=== PATIENT | female | born 1955 | race African-American/Black ===

== ENCOUNTER 2021-03-10 14:59 | Emergency (ER) | payer OTHER ==
[~2021-03-10] VITALS: Ht 149.9 cm; Wt 48.5 kg
[2021-03-10 16:26] VITALS: BP 161/88
== END 2021-03-10 16:27 ==
LOC: ER 14:59
PROVIDERS: Nurse Practitioner
DX: Z20.822 Contact with and (suspected) exposure to COVID-19 (principal); Z88.1 Allergy status to other antibiotic agents

== ENCOUNTER 2021-03-28 03:49 | Inpatient (IN) | payer OTHER ==
[~2021-03-28] VITALS: Ht 152.4 cm; Wt 52.2 kg
[2021-03-28 03:50] VITALS: BP 238/108
[2021-03-28] MEDS ORDERED: HUMALOG KW100 UNIT/1 SUBQ (04:21)
[2021-03-28] MEDS ORDERED: PRINIVIL40 MG PO (04:25)
[2021-03-28] MEDS ORDERED: ROSUVASTATIN CA10 MG PO (04:25)
[2021-03-28] MEDS ORDERED: LEVEMIR FL100 UNIT/2 SUBQ (04:25)
[2021-03-28] MEDS ORDERED: CLONAZEPAM 0.50.5 M1 PO (04:26)
[2021-03-28] MEDS ORDERED: REMERON 30 MG T30 M1 PO (04:26)
[2021-03-28] MEDS ORDERED: BUSPIRONE HCL5 MG PO (04:26)
[2021-03-28] MEDS ORDERED: ESCITALOPRAM OX20 MG PO (04:26)
[2021-03-28] MEDS ORDERED: NEURONTIN 300M300 M2 PO (04:27)
[2021-03-28] MEDS ORDERED: LISINOPRIL30 MG PO (04:27)
[2021-03-28 04:51] LABS: ABSOLUTE NEUTROPHILS 5.3 thou/uL (1.4-8.2); BASOPHILS 0.7 % (0.0-2.0); EOSINOPHILS 3.6 % (0.0-3.0); HEMATOCRIT 42.1 % (37.0-47.0); HEMOGLOBIN 14.4 gm/dL (12.0-15.0); LYMPHOCYTES 24.7 % (24.0-44.0); MCH 29.6 pg (26.0-34.0); MCHC 34.3 g/dL (28.0-37.0); MCV 86.2 fL (80.0-100.0); MONOCYTES 6.3 % (1.0-8.0); PLATELET COUNT 205 thou/uL (150-400); POLYS 64.7 % (36.0-66.0); RBC 4.88 mil/uL (4.20-5.00); RDW 13.6 % (10.5-14.5); WBC 8.2 thou/uL (4.0-11.0)
[2021-03-28 04:56] LABS: CALCIUM 9.7 mg/dL (8.5-10.1); CREATININE 0.9 mg/dL (0.6-1.0); POTASSIUM 3.5 mmol/L (3.5-5.1)
[2021-03-28 04:59] LABS: URINE BILIRUBIN NEGATIVE (Negative); URINE BLOOD TRACE (Negative); URINE CLARITY CLEAR; URINE COLOR YELLOW; URINE GLUCOSE-RANDOM* NEGATIVE (Negative); URINE KETONES NEGATIVE (Negative); URINE LEUKOCYTES-REFLEX NEGATIVE (Negative); URINE NITRITE-REFLEX NEGATIVE (Negative); URINE PROTEIN (DIPSTICK) NEGATIVE (Negative); URINE SPECIFIC GRAVITY 1.015 (1.005-1.035); URINE UROBILINOGEN 0.2 E.U./dl (0.2-1.0)
[2021-03-28 05:03] LABS: ALBUMIN 4.1 g/dL (3.4-5.0); MAGNESIUM 1.8 mg/dL (1.8-2.4); TOTAL BILIRUBIN 0.6 mg/dL (0.2-1.0); TOTAL PROTEIN 8.2 g/dL (6.4-8.2)
[2021-03-28 05:05] LABS: AMP/METHAMP Negative (Negative); BARBITURATES Negative (Negative); BENZODIAZEPINES Negative (Negative); COCAINE Negative (Negative); METHADONE Negative (Negative); OPIATES Negative (Negative); PCP Negative (Negative)
[2021-03-28 08:16] VITALS: BP 200/96
[2021-03-28 09:04] VITALS: BP 200/103
[2021-03-28 09:34] LABS: CHOLESTEROL 160 mg/dL (<200); HDL CHOLESTEROL 46 mg/dL (>40); LDL CHOLESTEROL 94 mg/dL (<100); TC:HDL 3.5 Ratio (Not establshd); TRIGLYCERIDE 101 mg/dL (<150); VLDL 20 mg/dL (<40)
--- NOTE | 2021-03-28 09:57 | EKG ---
[place] [address] [facility] [employer] [place] [address] ELECTROCARDIOGRAM REPORT Name: KAITLYN SPAULDING Room #: 359-P ADM IN M.R.#: [id number] Admission: 03/28/21 Attend Phys: George Carter Discharge: Date of : 51 Report #: [id number] [facility] ED Test Date: 2021-03-28 Test Time: 04:23:34 Pat Name: KAITLYN SPAULDING Department: Room: 359 Gender: F Associate Research Scientist: : 1955 Requested By: Dominique Colin Order Number: [id number] MD: Cas Freed Measurements Intervals [place] Rate: 86 P: 26 FL: 147 QRS: -20 QRSD: 111 T: 70 QT: 408 QTc: 488 Interpretive Statements Sinus rhythm Left atrial enlargement LVH with IVCD and secondary repol abnrm No previous ECG available for comparison Electronically Signed On 03-28-2021 9:57:48 CLAY PLANT TREATER by Cas Freed [email or web address] <ELECTRONICALLY SIGNED> By: Cas Freed MD 03/28/21 0957 0423 0423 Cas Freed MD /EPI
[2021-03-28 13:21] VITALS: BP 173/82
--- NOTE | 2021-03-28 17:50 | NUR ---
PATIENT IS ALERT AND ORIENTED X4 (PERSON, PLACE, TIME). PATIENT HAS DIFFICULTY EXPRESSING WHAT SHE IS TRYING TO SAY. PATIENTS NIH SCALE WAS NEGATIVE. PATIENT HAS DIMINISHED LUNG SOUND IN THE BASES. PATIENT IS CC/ TELE AND HAS BEEN SINUS RHYTHM THIS SHIFT. PATIENT GETS UP WITH ONE ASSIST WITH WALKER AND GAITBELT AND HAS TO BE REMINDED TO TAKE THE WALKER WITH HER WHEN AMBULATING. PATIENT IS SHAKY AND REPORTS FEELING NERVOUS WHEN SHE IS AMBULATING. PATIENT REPORTS HER LAST BM WAS 03/28/2021. PATIENT WAS INCONTINENT OF URINE ONCE THIS SHIFT. PATIENT HAS AN IV IN HER RIGHT FOREARM THAT IS SALINE LOCKED AND PATENT. PATIENT WILL CONTINUE TO BE MONITORED.
[2021-03-28 20:35] VITALS: BP 176/90
[2021-03-28 23:50] VITALS: BP 166/78
[2021-03-29 04:26] VITALS: BP 134/71
--- NOTE | 2021-03-29 06:30 | NUR ---
Patient making slow progress towards outcome goals. High fall risks, fall precautions in place, calls out appropriately for needs to get up to bathroom. Hydrocodone given for chronic back pain. Nicotine patch started, pack a day smoker. BP improved after Clonidine given.
[2021-03-29 07:14] VITALS: BP 140/89
[2021-03-29 16:23] VITALS: BP 159/88
--- NOTE | 2021-03-29 17:07 | NUR ---
PATIENT IS ALERT AND ORIENTED X3. PATIENT HAS HAD NO POSITIVE RESPONSES ON HER STROKE SCREENING THIS SHIFT. PATIENT IS ON ROOM AIR AND HER LUNGS ARE CLEAR. PATIENT IS MS/ TELE AND HAS BEEN SINUS RHYTHM THIS SHIFT. PATIENT GETS UP TO THE BATHROOM WITH ONE ASSIST, GAITBELT, AND WALKER. PATIENT GET SHAKY WHEN AMBULATING THE FURTHER AWAY FROM THE BED SHE GETS. PATIENT HAS BACK PAIN. PATIENT WAS TREATED WITH ORDERED PAIN MEDICATIONS AT 1630. PATIENT HAS AN IV IN HER RIGHT FOREARM THAT IS SALINE LOCKED AND PATENT. PATIENT WILL CONTINUE TO BE MONITORED.
[2021-03-29 19:16] VITALS: BP 174/92
--- NOTE | 2021-03-29 22:56 | NUR ---
PT ALERT AND ORIENTED X3. MILDLY CONFUSED TO CORRECT HOSPITAL. FOLLOWS COMMANDS FOR NIH APPROPRIATELY. AMBULATED TO BR WITH WALKER STANDBY ASSISTANCE. GAIT IS STEADY PRESENTLY. NO S/S TIA OR CVA PRESENTY. NO S/S DISTRESS ON RA.
[2021-03-29 23:27] VITALS: BP 183/84
[2021-03-30] VITALS (8 sets, daily range): BP systolic 139–183; BP diastolic 66–91
--- NOTE | 2021-03-30 06:28 | NUR ---
PT PROGRESSING SLOWLY TOWARDS D/C GOALS. AFEBRILE. BP ELEVATED .SEE VS. HYDRALAZINE GIVEN. BP MODERATELY HIGH AFTER HYDRALAZINE. HYDROCODONE GIVEN FOR BACK PAIN. PT SLEEPING AFTER PAIN MEDS. NO S/S TIA OR CVA TONIGHT.
--- NOTE | 2021-03-30 18:44 | NUR ---
RN ASSUMED PT'S CARE AT 0700AM, PT IS A&OX3 ( PERSON, PLACE AND TIME), PT IS ON ROOM AIR, PT'S VS ARE STABLE AT DAY SHIFT, PT'S BACK PAIN HAS CONTROLLED AT DAY SHIFT.
[2021-03-31 00:55] VITALS: BP 160/80
[2021-03-31 04:07] VITALS: BP 141/94
--- NOTE | 2021-03-31 05:15 | NUR ---
PT HAS BEEN NPO AFTER MN FOR POSSIBLE KYPHOPLASTY TODAY. CLARIFIED WIH SEISMOGRAPH COMPUTER IF PT COULD TAKE HER PAIN PILL AND PROTONIX THIS AM. OK TO GIVEN MEDS WITH SIP OF H20 PER SEISMOGRAPH COMPUTER. SL R FA FLUSHED AND PATENT. PT BATH COMPLETED.
[2021-03-31 07:14] VITALS: BP 149/83
--- NOTE | 2021-03-31 12:38 | HC ---
[facility] [place] [address] CONSULTATION Name: KAITLYN SPAULDING Room #: 359-P ADM IN M.R.#: [id number] Admission: 03/28/21 Attend Phys: George Carter Discharge: Date of : 51 Report #: [id number] THIS REPORT FOR: cc: NO FAMILY PHYSICIAN or PCP NO FAMILY PHYSICIAN or PCP Gerald Anaya MD ~ DATE OF SERVICE: 03/31/2021 We were asked by Dr. Lane to see the patient. HISTORY OF PRESENT ILLNESS: The patient is a 65-year-old admitted with a history of neurologic dysfunction. The patient claims that she went berserk several days ago and was unable to speak and had difficulty moving hands and feet. This appeared to improve after admission. The patient also notes that she fell approximately 2 weeks ago and sustained compression fractures of L2 and T6. 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 No acute abnormalities. CT angiogram shows bilateral calcified carotid arteries and a "near occlusion" of the left internal carotid is seen. I agree that the calcium makes it difficult to quantify the lesion. PAST MEDICAL HISTORY: Significant for hypertension, depression and anxiety. The patient has had a bilateral mastectomy for breast cancer in the past. The patient also has diabetes mellitus. MEDICATIONS: Include insulin, rosuvastatin, lisinopril, buspirone, clonazepam, escitalopram, mirtazapine, lisinopril, gabapentin as mentioned. PAST HISTORY: Includes diabetes, hypertension, previous stroke in 2007, dyslipidemia, breast cancer, tobacco use. The patient claims she is a longtime tobacco smoker, who is having difficulty quitting. ALLERGIES: THE PATIENT CLAIMS TO BE ALLERGIC TO TETRACYCLINE, WHICH CAUSES NAUSEA AND VOMITING. REVIEW OF SYSTEMS: I agree with the review of systems as dictated by the hospitalist. PHYSICAL EXAMINATION: GENERAL: The patient is lying in bed, seems comfortable, is relatively animated. VITAL SIGNS: Temperature 36.5, heart rate 70, respiratory rate 18, blood pressure 149/83. [address] [address] CONSULTATION Name: KAITLYN SPAULDING Room #: 359-P [facility] IN M.R.#: [id number] Admission: 03/28/21 Attend Phys: George Carter Discharge: Date of : 51 Report #: [id number] HEENT: No scleral icterus. No arcus. NECK: No mass. Loud left cervical bruit audible. I do not hear a right cervical bruit. CHEST: Clear to auscultation. HEART: Rhythm regular, no murmur. ABDOMEN: Soft. EXTREMITIES: No clubbing, cyanosis or edema. VASCULAR: Strong popliteal pulses bilaterally. MUSCULOSKELETAL: No bone or joint asymmetry or deformity. SKIN: No rash or infection. NEUROLOGIC: No obvious motor or sensory dysfunction, speaks well. PSYCHIATRIC: Oriented and appropriate and shows insight into problem. IMPRESSION: The patient has bilateral carotid artery disease. I have taken the liberty of ordering a duplex evaluation to get better assessment of the left carotid. If this is a subtotal occlusion, then we should probably address this prior to other procedures. The patient is on aspirin. I will discuss this with Dr. Lane. Thank you for the consult. <ELECTRONICALLY SIGNED> By: Gerald Anaya MD 03/31/21 1238 1007 1135 Gerald Anaya MD /nt
[2021-03-31 14:06] VITALS: BP 148/71
[2021-03-31 16:18] VITALS: BP 167/74
[2021-03-31 16:26] LABS: URINE BILIRUBIN NEGATIVE (Negative); URINE BLOOD NEGATIVE (Negative); URINE GLUCOSE-RANDOM* NEGATIVE (Negative); URINE KETONES NEGATIVE (Negative); URINE NITRITE-REFLEX NEGATIVE (Negative); URINE PROTEIN (DIPSTICK) NEGATIVE (Negative); URINE UROBILINOGEN 0.2 E.U./dl (0.2-1.0)
[2021-03-31 16:28] LABS: URINE LEUKOCYTES-REFLEX 1+ (Negative)
[2021-03-31 16:33] LABS: SQUAMOUS 0-3 Few /LPF (0-3); URINE CLARITY CLEAR; URINE COLOR YELLOW
[2021-03-31 16:34] LABS: BACTERIA-REFLEX None Seen /HPF (None Seen); CRYSTALS None Seen /LPF (None Seen); URINE RBC None Seen /HPF (NONE SEEN); URINE WBC-REFLEX 0-5 Rare /HPF (0-5)
--- NOTE | 2021-03-31 16:49 | NUR ---
INITIAL ASSESSMENT: Received consult for discharge planning. Pt was admitted from home due to AMS/ compression fx/carotid artery occlusion. Neuro and CTS consulted. Pt with hx of neurologic dysfunction/HTN/depression/anxiety/DM. Pt had kyphoplasty earlier today. Carotid endarterectomy is planned for . WILLIS spoke with pt's dtr, Karen, via phone. Introduced role of WILLIS. Pt has been living at home alone. Pt's dtr states that when pt discharges, she will be staying with Karen and her family. Prior to admission, pt was not using any DME. Karen is pt's paid caregiver [facility] No hx of Post-acute placement. Pt's dtr states that they would be agreeable with HH services if needed for therapy. Pt's PCP is Dr. Bernard Anthony. PT/OT has been ordered. Pt's dtr requested documentation stating that pt is hospitalized. Karen needs to provide documentation to her employer. Letter left on pt's chart for Karen to leaf size picker later today. WILLIS is following to assist as needed with discharge planning.
[2021-03-31 19:44] LABS: HEMATOCRIT 41.5 % (37.0-47.0); HEMOGLOBIN 13.6 gm/dL (12.0-15.0); MCH 28.8 pg (26.0-34.0); MCHC 32.7 g/dL (28.0-37.0); MCV 88.1 fL (80.0-100.0); RBC 4.71 mil/uL (4.20-5.00); RDW 14.1 % (10.5-14.5)
--- NOTE | 2021-03-31 19:44 | NUR ---
PATIENT IS ALERT AND ORIENTED X3 THIS SHIFT. SHE IS OCCASSIONALLY FORGETFUL. PATIENTS NIH SCREENINGS HAVE BEEN NEGATIVE THIS SHIFT. PATIENT HAD LOW BLOOD GLUCOSE LEVELS AROUND NOON, PATIENT WAS TREATED PER PROTOCOL. PATIENT REPORTS 'VERY LITTLE' PAIN POST KYPHOPLASTY. PATIENT IS ON BED REST AND ALLOWED TO GET UP TO USE THE COMMODE ONLY FOR TWENTY FOUR HOURS. PATIENT IS ON ROOM AIR. HER LUNGS ARE DIMINISHED BUT CLEAR IN ALL FIVE LOBES. PATIENTS IV IN HER RIGHT ARM INFILTRATED. A NEW IV WAS PLACED IN PATIENTS LEFT FOREARM. IV IS PATIENT. PATIENT WILL CONTINUE TO BE MONITORED.
[2021-03-31 19:53] LABS: ALBUMIN 3.4 g/dL (3.4-5.0); CALCIUM 8.9 mg/dL (8.5-10.1); CREATININE 1.1 mg/dL (0.6-1.0); POTASSIUM 4.1 mmol/L (3.5-5.1); TOTAL BILIRUBIN 0.5 mg/dL (0.2-1.0)
[2021-03-31 19:55] VITALS: BP 151/70
[2021-03-31 19:55] LABS: APTT 25.6 Seconds (24.5-32.8); INR 1.17; PROTIME 12.7 Seconds (10.5-12.1)
[2021-04-01 00:20] VITALS: BP 129/75
[2021-04-01 03:50] VITALS: BP 146/78
--- NOTE | 2021-04-01 04:18 | NUR ---
Patient making slow progress towards outcome goals. Vital signs and rhythm stable. Good back pain control with Hydrocodone, only standby assist to BSC for the night. IVfluids infusing. Plnety of urine output.
--- NOTE | 2021-04-01 07:16 | EKG ---
[address] [address] ELECTROCARDIOGRAM REPORT Name: KAITLYN SPAULDING Room #: 359- ADM IN M.R.#: [id number] Admission: 03/28/21 Attend Phys: George Carter Discharge: Date of : 51 Report #: [id number] [facility] Test Date: 2021-03-31 Test Time: 12:02:37 Pat Name: KAITLYN SPAULDING Department: Room: 359 Gender: F Supervisor Die Casting: ERNIE : 1955 Requested By: Gerald Anaya Order Number: [id number] : Kelechi Meek Measurements Intervals [place] Rate: 60 P: 33 MD: 159 QRS: -17 QRSD: 101 T: 3 QT: 470 QTc: 470 Interpretive Statements Sinus rhythm Probable left atrial enlargement Left ventricular hypertrophy Inferior infarct, old Compared to ECG 03/28/2021 04:23:34 Myocardial infarct finding now present ST (T wave) deviation now present Intraventricular conduction delay no longer present Early repolarization no longer present Electronically Signed On 04-01-2021 7:16:00 CATERPILLAR MECHANIC by Kelechi Meek [email or web address] <ELECTRONICALLY SIGNED> By: Kelechi Meek MD, FACC 04/01/21 0716 120 1202 Kelechi Meek MD, FAC /EPI
[2021-04-01 07:37] VITALS: BP 163/73
--- NOTE | 2021-04-01 10:32 | NUR ---
VASCULAR ACCESS NURSE ROUNDING. A PICC WAS ORDERED 03/31 FOR IV ACCESS. A PERIPHERAL IV WAS PLACED PM AND THE PATIENT NOW HAD ADEQUATE ACCESS. SPOKE TO RORY BAUMANN AND PICC IS ON HOLD AT THIS TIME. DISCUSSED WITH THE PATIENT AND DAUGHTER. WE WILL RETURN TO PLACE PICC IF NEEDED.
--- NOTE | 2021-04-01 11:14 | 2DMMODE ---
[facility] [address] [place] [address] 2 D/M-MODE ECHOCARDIOGRAM Name: KAITLYN SPAULDING Room #: 359-P ADM IN M.R.#: [id number] Admission: 03/28/21 Attend Phys: George Carter Discharge: Date of : 51 Report #: [id number] THIS REPORT FOR: cc: NO FAMILY PHYSICIAN or PCP NO FAMILY PHYSICIAN or PCP Cas Freed MD ~ APPROVED REPORT Study performed: 04/01/2021 10:05:24 EXAM: Comprehensive 2D, Doppler, and color-flow Echocardiogram Patient Location: Bedside Room #: 359 Status: routine BSA: 1.46 HR: 63 bpm BP: 163/73 mmHg Rhythm: NSR Other Information Study Quality: Good Indications CVA/TIA Diabetes Hypertension/HDD Echo Enhancing Agent Indication: Rule out Shunt Agent(s) / Amount(s) Used: Agitated Saline 7 cc 2D Dimensions RVDd: 27.05 mm IVSd: 10.72 (7-11mm) LVOT Diam: 20.91 (18-24mm) LVDd: 41.56 mm PWd: 10.76 (7-11mm) Ascending Ao: 24.50 (22-36mm) LVDs: 21.92 (25-40mm) Left Atrium: 33.89 (27-40mm) Aortic Root: 27.99 mm IVC: 14.00 mm Volumes Left Atrial Volume (Systole) Single Plane 4CH: 30.17 mL Single Plane 2CH: 36.56 mL LA ESV Index: 28.00 mL/m2 [facility] [address] [place] [address] 2 D/M-MODE ECHOCARDIOGRAM Name: JASSONKAITLYN Amaya Room #: 359-P [facility] IN ..#: [id number] Admission: 03/28/21 Attend Phys: George Nye Jul Discharge: Date of : 51 Report #: [id number] Aortic Valve AoV Peak Pa.: 1.37 m/s AO Peak Gr.: 7.52 mmHg LVOT Max P.19 mmHg LVOT Max V: 1.02 m/s NELIDA Vmax: 2.56 cm2 Mitral Valve E/A Ratio: 0.5 MV Decel. Time: 280.72 ms MV E Max Pa.: 0.80 m/s MV A Pa.: 1.59 m/s MV PHT: 81.41 ms IVRT: 133.79 ms Pulmonary Valve PV Peak Pa.: 0.88 m/s PV Peak Gr.: 3.09 mmHg Pulmonary Vein P Vein S: 0.44 m/s P Vein A: 0.23 m/s P Vein D: 0.17 m/s P Vein A Dur.: 92.3 msec P Vein S/D Ratio: 2.59 Left Ventricle The left ventricle is normal size. There is normal LV segmental wall motion. There is normal left ventricular wall thickness. The left ventricular systolic function is normal. The left ventricular ejection fraction is within the normal range. LVEF is 60-65%. Grade I - abnormal relaxation pattern. Right Ventricle The right ventricle is normal size. The right ventricular systolic function is normal. Atria The left atrium size is normal. Injection of bubbles documented no interatrial shunt. The right atrium size is normal. Aortic Valve The aortic valve is normal in structure. The Aortic valve is sclerotic. Mild aortic regurgitation. There is no aortic valvular stenosis. Mitral Valve The mitral valve is normal in structure. There is no mitral valve regurgitation noted. No evidence of mitral valve stenosis. [facility] [address] [place] [address] 2 D/M-MODE ECHOCARDIOGRAM Name: KAITLYN SPAULDING Room #: 359-P [facility] IN .R.#: [id number] Admission: 03/28/21 Attend Phys: George Ayala Discharge: Date of : 51 Report #: [id number] Tricuspid Valve The tricuspid valve is normal in structure. There is no tricuspid valve regurgitation noted. Pulmonic Valve The pulmonary valve is normal in structure. There is no pulmonic valvular regurgitation. Great Vessels The aortic root is normal in size. IVC is normal in size and collapses >50% with inspiration. Pericardium There is no pericardial effusion. <Conclusion> The left ventricle is normal size. There is normal left ventricular wall thickness. The left ventricular systolic function is normal. Grade I - abnormal relaxation pattern. The right ventricle is normal size. The left atrium size is normal. Injection of bubbles documented no interatrial shunt. Mild aortic regurgitation. There is no mitral valve regurgitation noted. <ELECTRONICALLY SIGNED> By: Cas Freed MD 04/01/211112 12 12 Cas Freed MD /INF
--- NOTE | 2021-04-01 13:34 | NUR ---
PT DISCHARGED TO ACUTE 03/30 DUE TO ATRIAL FLUTTER AND CHANGES IN BP, AND WAS RE-ADMITTED TO REHAB 03/31 INTERRUPTED STAY. REFER TO FOR PRIOR ADL STATUS ON REHAB.
--- NOTE | 2021-04-01 14:45 | NUR ---
SW reviewed chart and spoke with nursing and attending physician. Pt is s/p kyphoplasty. Pt to have angiogram today and is scheduled for left carotid endarterectomy on morning. Therapy is following to assist with recommendations for discharge needs. SW is following to assist as needed with discharge planning.
[2021-04-01 15:40] VITALS: BP 158/88
[2021-04-01 19:53] VITALS: BP 153/84
--- NOTE | 2021-04-01 20:09 | NUR ---
PT REPORTS BACK PAIN MUCH IMPROVED AFTER KYPHOPLASTY YESTERDAY...ONLY REQUIRED HER NORCO X 1 TODAY AND SHE MOVES AROUND MUCH EASIER NOW...
[2021-04-02 06:18] VITALS: BP 171/98
[2021-04-02 07:27] VITALS: BP 186/101
--- NOTE | 2021-04-02 07:30 | NUR ---
Pt. has slept well most of the night. Did not request for pain med this shift. Up with SBA to use commode. Kept NPO for procedure.
--- NOTE | 2021-04-02 12:19 | NUR ---
WILLIS reviewed chart and spoke with nursing and attending physician. WILLIS met with pt's dtr, Karen, in pt's room. Pt was off the unit having angiogram. Plan is for pt to have left carotid endarterectomy tomorrow. WILLIS discussed discharge plan with pt's dtr. Pt's dtr is her paid caregiver through her Medicaid. Pt will need HH therapy arranged through a HH provider. Pt's dtr is agreeable with HH if needed. WILLIS is following to assist as needed with discharge planning.
--- NOTE | 2021-04-02 12:39 | NUR ---
PT TRANSFERED BACK TO RM 359 AT 1240 PER RN. RT GROIN DRESSING CLEAN DRY INTACT. NO BLEEDING OR SWELLING OR HEMATOMA. THREE HOUR BEDREST COMPLETE. REPORT TO MARTY BAUMANN HR 71; BP 135/74. PT ATE LUNCH WITH DAUGHTER'S HELP WHILE HERE. PAIN IMPROVED
--- NOTE | 2021-04-02 13:02 | NUR ---
PT LEFT UNIT AT APPROX 0800 AND WENT TO [facility] FOR PROCEDURE. UNABLE TO ADMINISTER MORNING MEDS. NOTIFIED BY [facility] NURSE THAT PT WILL STAY ON THEIR UNIT UNTIL APPROX 1300.
[2021-04-02 17:05] VITALS: BP 134/87
[2021-04-02 21:57] VITALS: BP 120/71
--- NOTE | 2021-04-03 03:19 | NUR ---
PT IS A&OX4 AND ABLE TO COMMUNICATE WANTS AND NEEDS TO STAFF. PT IS SCHEDULED FOR CAROTID ENDARTERECTOMY IN THE MORNING, HAS BEEN NPO SINCE MIDNIGHT. SR ON THE MONITOR. DENIES CHEST PAIN AND SHORTNESS OF BREATH. PT IS UP WITH SBA TO BATHROOM, STEADY GAIT NOTED. PT WITH COMPLAINT OF LOWER BACK PAIN, MEDICATED WITH NORCO AND TYLENOL. WILL CONTINUE TO OBSERVE FOR CHANGES
[2021-04-03 03:46] VITALS: BP 132/78
[2021-04-03 08:01] VITALS: BP 138/74
[2021-04-03 11:55] VITALS: BP 124/79
--- NOTE | 2021-04-03 14:39 | NUR ---
WILLIS reviewed chart and spoke with nursing and attending physician. Pt was scheduled to have carotid endarterectomy this morning. EEG machine was not working. Surgery was cancelled. WILLIS met with pt and dtr, Ronda, at bedside. Unknown when surgery will be rescheduled. Pt's dtr, Karen, requests documentation to provide to her employer regarding her mother's hospitalization. Letter provided. Left in pt's room. SW met with pt per her request. Pt's dtr would like an update regarding the plan for surgery. WILLIS provided Karen's contact info to attending physician. WILLIS is following to assist as needed with discharge planning.
[2021-04-03 15:22] VITALS: BP 113/75
[2021-04-03 15:46] LABS: HEMATOCRIT 40.6 % (37.0-47.0); HEMOGLOBIN 13.2 gm/dL (12.0-15.0); MCH 28.9 pg (26.0-34.0); MCHC 32.6 g/dL (28.0-37.0); MCV 88.7 fL (80.0-100.0); RBC 4.58 mil/uL (4.20-5.00); RDW 14.2 % (10.5-14.5); WBC 6.6 thou/uL (4.0-11.0)
[2021-04-03 15:56] LABS: CALCIUM 9.1 mg/dL (8.5-10.1); POTASSIUM 4.2 mmol/L (3.5-5.1)
--- NOTE | 2021-04-03 16:32 | NUR ---
PT ALERT AND ORIENTED X 4. PT OFF UNIT AT START OF SHIFT, DUE TO SCHEDULED SURGERY. PT NOT ABLE TO GET SURGERY TODAY BECAUSE OF MALFUNCTIONING EQUIPMENT. AFTER SPEAKING WITH SURGEON ALLIE AND DR YIN, PT PUT BACK ON REGULAR DIET. PT SURGERY RESCHEDULED TOMORROW, PT TO BE NPO AFTER MIDNIGHT. PT COMPLAINS OF BACK PAIN. WILL CONTINUE TO MONITOR.
[2021-04-03 19:33] VITALS: BP 147/85
[2021-04-04] VITALS (7 sets, daily range): BP systolic 98–180; BP diastolic 53–85
--- NOTE | 2021-04-04 03:14 | NUR ---
PT IS A&OX4, PLEASANT AND COOPERATIVE. PT HAS BEEN NPO SINCE MIDNIGHT FOR PLANNED STENT PLACEMENT IN THE MORNING. PT HAS C/O "HEARTBURN," MEDICATED WITH PRN MAALOX X1 WITH GOOD RELIEF. UP TO BR WITH SBA. VSS. WILL CONTINUE TO OBSERVE FOR CHANGES.
[2021-04-04 05:59] LABS: HEMATOCRIT 40.6 % (37.0-47.0); HEMOGLOBIN 13.6 gm/dL (12.0-15.0); MCH 29.3 pg (26.0-34.0); MCHC 33.4 g/dL (28.0-37.0); MCV 87.6 fL (80.0-100.0); RBC 4.63 mil/uL (4.20-5.00); RDW 13.7 % (10.5-14.5); WBC 7.5 thou/uL (4.0-11.0)
[2021-04-04 06:05] LABS: CALCIUM 9.5 mg/dL (8.5-10.1)
--- NOTE | 2021-04-04 09:20 | NUR ---
Assess for length of stay. Admit with possible CVA, compression fractures. Pt awaiting pending carotid endarectomy. Has functional swallow and tolerating meals. Healthy wt status. BG showing elevation 154-213, has insulin coverage. Recommend carb control diet after surgery. Otherwise low nutrition risk
--- NOTE | 2021-04-04 13:32 | NUR ---
WILLIS reviewed chart and spoke with nursing and attending physician. Plan for left carotid stent via TCAR procedure today with IR and CTS. 5N consult ordered to evaluate pt for possible admission to inpt acute rehab. Therapy to see pt after procedure. Will need insurance authorization for post-acute placement. No weekend discharge anticipated. WILLIS is following to assist as needed with discharge planning.
--- NOTE | 2021-04-04 14:57 | NUR ---
TOOK OVER CARE OF THIS PATIENT AT 0700. PATIENT RESTING COMFORTABLY IN BED DURING REPORT. PATIENT REMAINS NPO FOR PROCEDURE. CALLED DR. POLO REVENUE STAMP CUTTER TO SEE WHICH MEDICATIONS THEY WOULD LIKE TO HOLD BEFORE THE PROCEDURE; HELP PATI LISINOPRIL. PATIENT SCHEDULED FOR PROCEDURE TODAY. PATIENT ON ROOM AIR; DENIES SOA AND COUGH. AXOX4. VSS. WILL MONITOR PATIENT WHEN SHE GETS BACK FROM PROCEDURE; PATIENT LEFT UNIT APPROX 1400.
--- NOTE | 2021-04-04 22:36 | NUR ---
PT ARRIVED FROM PACU AT 1913 ACCOMPANIED BY ARCHANA, RN. AT TIME OF ARRIVAL PT ON CARDENE GTT OF 10 MG/HR. PT ORIENTED TO ROOM. VSS. PT ORIENTED TO SELF AND PLACE, BUT FORGETFUL CONSTANTLY ASKING "WHAT HAPPENED." DAUGHTER, BUBBA AT BEDSIDE AT 1945 AND STATED THAT PT IS FORGETFUL AT BASELINE. DR DASH ROUNDED AT 1999. WILL CONTINUE TO MONITOR.
[2021-04-05] VITALS (11 sets, daily range): BP systolic 88–120; BP diastolic 44–66
[2021-04-05 06:23] LABS: HEMATOCRIT 34.7 % (37.0-47.0); MCH 29.1 pg (26.0-34.0); MCV 88.2 fL (80.0-100.0); RBC 3.93 mil/uL (4.20-5.00); RDW 13.4 % (10.5-14.5); WBC 9.7 thou/uL (4.0-11.0)
[2021-04-05 06:29] LABS: HEMOGLOBIN 11.4 gm/dL (12.0-15.0)
[2021-04-05 06:51] LABS: CALCIUM 8.7 mg/dL (8.5-10.1); POTASSIUM 4.7 mmol/L (3.5-5.1)
--- NOTE | 2021-04-05 12:12 | O ---
[facility] [place] [address] OPERATIVE REPORT Name: KAITLYN SPAULDING Room #: 249-P ADM IN M.R.#: [id number] Admission: 03/28/21 Attend Phys: George Popeye Carter Discharge: Date of : 51 Report #: [id number] THIS REPORT FOR: cc: NO FAMILY PHYSICIAN or PCP NO FAMILY PHYSICIAN or PCP Gerald Anaya MD ~ DATE OF SERVICE: 04/04/2021 PREOPERATIVE DIAGNOSIS: Symptomatic high-grade left carotid artery stenosis. POSTOPERATIVE DIAGNOSIS: Symptomatic high-grade left carotid artery stenosis. OPERATION: Transcarotid arterial revascularization, left. SURGEON: Dr. Gerald Anaya and Dr. El Henderson. WASTE WATER OR WATER PLANT OPERATOR: ALLIE Worthington. ANESTHESIA: General. INDICATIONS: The patient is a 65-year-old who has a symptomatic left internal carotid stenosis. The patient presented with a transient ischemic attack approximately 1 week ago. This was characterized by speaking difficulty and motor dysfunction. No acute stroke was seen on the MRI and the patient largely resolved her symptoms. Arteriography demonstrated a 90% left internal carotid stenosis. The right side has a 30% lesion on the arteriogram. FINDINGS AND TECHNIQUE: After general anesthesia was established, the left sided low collar incision was made. The heads of the sternocleidomastoid muscle were and the common carotid was identified and controlled. Separately, the right common femoral vein was identified and entered using ultrasound guidance with an arterial needle followed by guidewire and exchange catheter. A long wire was placed and the venous end of the transcarotid arterial revascularization sheath was placed. Next, 10,000 units of heparin were given and the ACT was checked at 3 minutes. The common carotid was entered with the arterial needle followed by the guidewire and the exchange catheter and then using the longer wire, the arterial end of the AV fistula was placed. When the ACT was satisfactory, flow was established through the fistula and antegrade flow through the common carotid was occluded. An arteriogram was taken to identify the lesion. Pre-stent dilatation was done [facility] [address] [place] [address] OPERATIVE REPORT Name: KAITLYN SPAULDING Amaya Room #: 249-P [facility] IN ..#: [id number] Admission: 03/28/21 Attend Phys: George Carter Discharge: Date of : 51 Report #: [id number] using a 4 x 30 Cordis balloon. Good resolution of the blockage was identified and then the 9 x 30 Enroute stent was placed. Post-stent dilatation was done with a 5 x 20 Cordis balloon. Two minutes were allowed to elapse and then a final arteriogram was taken. This showed good correction of the lesion and good antegrade flow. With this information, flow was reestablished through the common carotid. The AV shunt was dismantled. The arterial end of the AV fistula was removed and the pursestring in the common carotid was tied tight. A second Prolene suture was placed at the puncture site for security. The venous end of the sheath was removed and pressure was applied to the groin. Protamine was given to reverse the heparin. When hemostasis was satisfactory, the neck wound was closed in layers. The patient tolerated the procedure well and was taken to the recovery area where her neurologic progress was monitored. All counts were reported as correct. <ELECTRONICALLY SIGNED> By: Gerald Anaya MD 04/05/21 1212 1648 1827 Gerald Anaya MD /nt
--- NOTE | 2021-04-05 15:51 | NUR ---
PATIENT ALERT, FORGETFUL. BP LOW THIS MORNING AND ANTIHYPERTENSIVES HELD PER SPECIAL EDUCATION DIRECTOR. UP TO THE CHAIR WITH MINIMAL ASSIST. TOLERATING DIET WELL W/O NAUSEA. MEDICATED FOR PAIN WITH PRN MEDS. A-LINE RT. RADIAL. THIS AFTERNOON PATIENT C/O CHIPPED FRONT TOOTH AND WANTS TO TAPE IT DOWN, PATIENT INFORMED NO DENTIST IS IN THE HOSPITAL. PATIENT NOW YELLING AT NURSE AND ACCUSING NURSE OF BEING RUDE AND MEAN AND THAT NURSE SHOUTED AND ARGUED WITH HER. ONE OF THE DAUGHTERS PRESENT FOR A FEW MINUTES AND WITNESSED PATIENT YELLING AND ACCUSING NURSE. MESSAGE SENT TO DR. YIN PER BEV TEXT BUT NO REPLY. PAGED ALSO SENT TO DR. YIN.
--- NOTE | 2021-04-05 16:50 | NUR ---
DR. YIN CALLED BACK AND TRIED TO TALK TO THE PATIENT ON THE PHONE, PATIENT REFUSED TO TALK TO DR. YIN ON RN'S PHONE. DR. YIN REQUESTED TO PUT ON SPEAKER PHONE AND PATIENT STATED THAT SHE DID NOT WANT ANYTHING TO DO WITH ME AND THAT I WAS MEAN AND YELLED AT HER. DR. YIN ASKED TO CALL FACE AND FILL PACKER TO SEE WHETHER PATIENT COULD TRANSFER OUT OF ICU AND IF NOT HAVE HYDROMETER FINISHER EVALUATE THE STAFFING FOR DIFFERENT NURSE. HYDROMETER FINISHER NOTIFIED AND CALL PLACED TO DR. MAYA. DR. MAYA CALLED BACK AND OK THE ORDER TO TRANSFER TO CCU.
[2021-04-06 00:13] VITALS: BP 114/69
--- NOTE | 2021-04-06 04:26 | NUR ---
Assumed pt care at 1900. Patient is alert and oriented to self and place. Fall precaution in placed. Denies pain. Patient is stable. Assessment completed and documented. Patient continues to talk about her chipped tooth. Scheduled meds administered to pt. No acute event through the night. Continue to monitor. No further needs at this time.
[2021-04-06 05:12] VITALS: BP 135/64
[2021-04-06 08:00] VITALS: BP 123/79
[2021-04-06] MEDS ORDERED: HYDROCORTISONE30 G9 RECTAL (13:21)
[2021-04-06] MEDS ORDERED: LIDOPATCH1 EACH TRANSDERM (13:21)
[2021-04-06] MEDS ORDERED: NICOTINE1 EACH TRANSDERM (13:21)
[2021-04-06] MEDS ORDERED: HYDROCODON-ACE1 EAC7 PO (13:21)
[2021-04-06] MEDS ORDERED: ASPIRIN325 PO (13:21)
[2021-04-06] MEDS ORDERED: CLOPIDOGREL75 MG PO (13:21)
[2021-04-06] MEDS ORDERED: MIRALAX17 GM PO (13:21)
[2021-04-06 13:41] VITALS: BP 123/79
--- NOTE | 2021-04-06 15:02 | NUR ---
ASSESSMENT CHARTED. PT ALERT AND ORIENTED. VSS. PRN PAIN MED GIVEN FOR LOWER BACK PAIN WITH PARTIAL RELIEF. SEEN BY DR. DASH AND DR. AGUIRRE. ORDERS GIVEN TO DISCHARGE PT TO HOME. DISCHARGE INSTRUCTIONS GIVEN TO PT AND THE DAUGHTER. THEY BOTH VERBERLISED UNDERSTANDING. PT LEFT THE FACILITY ACCOMPANIED BY THE DAUGHTER.
== END 2021-04-06 15:09 | disposition home or self-care (01) | DRG 34 ==
LOC: ER 03:49 → EROBS 07:49 → 3W 07:49 → ICU 04-04 18:29 → 2N 04-05 18:43
PROVIDERS: Anesthesiology; Emergency Medicine; Nurse Practitioner; Physician Assistant; Surgery Vascular Surgery; ADMIT Hospitalist; ATTEND Hospitalist
DX: I65.22 Occlusion and stenosis of left carotid artery (principal); G93.41 Metabolic encephalopathy; I63.9 Cerebral infarction, unspecified; S22.050A Wedge compression fracture of T5-T6 vertebra, initial encounter for closed fracture; S32.020A Wedge compression fracture of second lumbar vertebra, initial encounter for closed fracture; I16.0 Hypertensive urgency; R47.01 Aphasia; Z20.822 Contact with and (suspected) exposure to COVID-19; E11.9 Type 2 diabetes mellitus without complications; I10 Essential (primary) hypertension; E78.00 Pure hypercholesterolemia, unspecified; G25.2 Other specified forms of tremor; F32.9 Major depressive disorder, single episode, unspecified; F03.90 Unspecified dementia, unspecified severity, without behavioral disturbance, psychotic disturbance, mood disturbance, and anxiety; E66.01 Morbid (severe) obesity due to excess calories; R47.1 Dysarthria and anarthria; F41.1 Generalized anxiety disorder; R53.81 Other malaise; Z86.73 Personal history of transient ischemic attack (TIA), and cerebral infarction without residual deficits; Z90.13 Acquired absence of bilateral breasts and nipples; Z85.3 Personal history of malignant neoplasm of breast; Z88.1 Allergy status to other antibiotic agents; Z83.3 Family history of diabetes mellitus; Z82.49 Family history of ischemic heart disease and other diseases of the circulatory system; Z71.6 Tobacco abuse counseling; Z68.22 Body mass index [BMI] 22.0-22.9, adult; X58.XXXA Exposure to other specified factors, initial encounter; Y93.89 Activity, other specified; Y92.89 Other specified places as the place of occurrence of the external cause; Y99.8 Other external cause status
CPT/HCPCS: 10078; 10081; 10879; 47375; 50010; 50101; 50386; 50403; 50455; 51301; 52287; 54118; 56524; 56526; 56528; 56531; 62110; 62900; 65020; 70005

== ENCOUNTER → 2021-05-07 | Outpatient (CLI) | payer OTHER ==
[~2021-05-07] MED LIST: ASPIRIN325 PO; BUSPIRONE HCL5 MG PO; CLONAZEPAM 0.50.5 M1 PO; CLOPIDOGREL75 MG PO; ESCITALOPRAM OX20 MG PO; HUMALOG KW100 UNIT/1 SUBQ; HYDROCODON-ACE1 EAC7 PO; HYDROCORTISONE30 G9 RECTAL; LEVEMIR FL100 UNIT/2 SUBQ; LIDOPATCH1 EACH TRANSDERM; LISINOPRIL30 MG PO; MIRALAX17 GM PO; NEURONTIN 300M300 M2 PO; NICOTINE1 EACH TRANSDERM; PRINIVIL40 MG PO; REMERON 30 MG T30 M1 PO; ROSUVASTATIN CA10 MG PO
== END ==
LOC: SJCVCIMAG 11:22
PROVIDERS: ATTEND Internal Medicine
DX: R94.31 Abnormal electrocardiogram [ECG] [EKG] (principal); I11.9 Hypertensive heart disease without heart failure; I65.21 Occlusion and stenosis of right carotid artery; I77.9 Disorder of arteries and arterioles, unspecified; I73.9 Peripheral vascular disease, unspecified; F41.9 Anxiety disorder, unspecified; M80.08XD Age-related osteoporosis with current pathological fracture, vertebra(e), subsequent encounter for fracture with routine healing; E11.9 Type 2 diabetes mellitus without complications; E78.00 Pure hypercholesterolemia, unspecified; R09.89 Other specified symptoms and signs involving the circulatory and respiratory systems; Z13.220 Encounter for screening for lipoid disorders; F17.200 Nicotine dependence, unspecified, uncomplicated; Z86.73 Personal history of transient ischemic attack (TIA), and cerebral infarction without residual deficits; Z88.8 Allergy status to other drugs, medicaments and biological substances; Z79.82 Long term (current) use of aspirin; Z79.4 Long term (current) use of insulin; Z79.899 Other long term (current) drug therapy

== ENCOUNTER → 2021-05-16 | Outpatient (CLI) | payer OTHER ==
[~2021-05-16] VITALS: Ht 149.9 cm; Wt 49.0 kg
[~2021-05-16] MED LIST changes: +ASA81BEC PO; +PLAVIX 75 MG TA75 MG PO; +TOPROL XL50 MG PO; +TRAMADOL 50 MG50 MG PO
[2021-05-16 11:57] VITALS: BP 119/111
--- NOTE | 2021-05-16 12:21 | NUR ---
Pain Clinic Assessment: 1. History of Osteoarthritis: Left Lower Extremity Right Lower Extremity History of Rheumatoid Arthritis: 2. Height: 4 ft. 11 in. 149.9 cm. Weight: 108.0 lb. oz. 48.988 kg. Patient's BMI: 21.8 3. Vital Signs: BP: 119/111 Pulse: 101 Resp: 16 Temp: 02 Sat: 97 ECG Mon: 4. Pain Intensity: 6 5. Fall Risk: Dizziness: N Needs help standing or walking: N Fallen in the last 3 months: N Fall risk comments: 6. Patient on Blood Thinner: Clopidogrel Bisulf(Plavix 7. History of Hypertension: Y 8. Opioid Therapy greater than 6 weeks: Y Opiate Contract Signed: 9. Risk Assessment Tool Provided: HIGH 10. Functional Assessment Tool: 11. Recreational Drug Use: Past greater than 3 mos Drug Type: Tobacco Use: Current Every Day Smoker Tobacco Type: Cigarettes Amount or Packs/day: 1 How Many Years: 40 Alcohol Use: No Frequency: Quant:
== END | disposition home or self-care (01) ==
LOC: PAIN 10:14
PROVIDERS: ATTEND Anesthesiology Pain Medicine
DX: M19.09 Primary osteoarthritis, other specified site (principal)